=== PATIENT | female | born 1985 | race Caucasian/White ===

== ENCOUNTER 2021-03-28 23:14 | Emergency (ER) | payer MEDICAID ==
[~2021-03-28] VITALS: Ht 175.3 cm; Wt 143.2 kg
[2021-03-28 23:47] VITALS: BP 160/90
[2021-03-29 00:43] LABS: BASOPHILS % (AUTO) 0.4 % (0-1); EOSINOPHILS # (AUTO) 0.1 X10'3 (0-0.9); EOSINOPHILS % (AUTO) 0.8 % (0-6); HEMATOCRIT 37.3 % (35.0-45.0); HEMOGLOBIN 12.2 g/dl (12.0-16.0); LYMPHOCYTES # (AUTO) 1.9 X10'3 (1.1-4.8); LYMPHOCYTES % (AUTO) 29.4 % (21-51); MEAN CORPUSCULAR HGB CONC 32.7 g/dL (33.0-36.5); MEAN CORPUSCULAR VOLUME 76.6 FL (78-98); MEAN PLATELET VOLUME 8.1 FL (7.4-10.4); MONOCYTES # (AUTO) 0.4 X10'3 (0-0.9); MONOCYTES % (AUTO) 6.8 % (2-12); NEUTROPHILS % (AUTO) 62.6 % (42-75); PLATELET COUNT 206 X10'3 (140-440); RED BLOOD COUNT 4.87 X10'6 (4.20-5.60); RED CELL DISTRIBUTION WIDTH 14.7 % (11.5-14.5); WHITE BLOOD COUNT 6.4 X10'3 (4.5-11.0)
[2021-03-29 00:56] LABS: ALANINE AMINOTRANSFERASE 20 U/L (12-78); ALBUMIN 3.3 G/DL (3.4-5.0); ALBUMIN/GLOBULIN RATIO 0.9 (1.1-1.5); ALKALINE PHOSPHATASE 89 IU/L (46-116); ANION GAP 9 (8-16); ASPARTATE AMINO TRANSFERASE 9 U/L (10-37); BILIRUBIN,DIRECT 0.1 MG/DL (0-0.3); BILIRUBIN,TOTAL 0.1 MG/DL (0.1-1.0); BLOOD UREA NITROGEN 10 MG/DL (7-18); BUN/CREATININE RATIO 16.4 (6.6-38.0); CALCIUM 8.1 MG/DL (8.5-10.1); CHLORIDE 108 MMOL/L (99-107); CREATININE 0.61 MG/DL (0.40-0.90); GLUCOSE 91 MG/DL (70-104); LIPASE 72 U/L (73-393); POTASSIUM 4.1 MMOL/L (3.5-5.1); SODIUM 143 MMOL/L (135-145); TOTAL CARBON DIOXIDE 26.5 MMOL/L (24-32); TOTAL PROTEIN 6.8 G/DL (6.4-8.2); eGFR > 90 ML/MIN
[2021-03-29] MEDS ORDERED: METO-292 PO (02:41)
== END 2021-03-29 02:49 | disposition home or self-care (01) ==
LOC: ER 23:17
DX: R10.84 Generalized abdominal pain (principal); Z20.822 Contact with and (suspected) exposure to COVID-19; R11.2 Nausea with vomiting, unspecified; Z91.040 Latex allergy status; Z98.890 Other specified postprocedural states; Z79.899 Other long term (current) drug therapy
CPT/HCPCS: 36415; 76700; 80048; 80076; 83690; 85025; 87635; 99284; C9803

== ENCOUNTER 2021-12-30 11:35 | Emergency (ER) | payer SELFPAY ==
[~2021-12-30] VITALS: Ht 172.7 cm; Wt 140.9 kg
[~2021-12-30 11:35] MED LIST: METO-292 PO
[2021-12-30 11:58] VITALS: BP 144/88
[2021-12-30] MEDS ORDERED: ondansetron 4mg rapidly disintigrating tab PO ONE (12:05)
[2021-12-30 12:33] LABS: BASOPHILS % (AUTO) 0.5 % (0-1); EOSINOPHILS # (AUTO) 0.1 X10'3 (0-0.9); EOSINOPHILS % (AUTO) 1.1 % (0-6); HEMATOCRIT 34.6 % (35.0-45.0); HEMOGLOBIN 10.8 g/dl (12.0-16.0); LYMPHOCYTES # (AUTO) 1.6 X10'3 (1.1-4.8); LYMPHOCYTES % (AUTO) 23.7 % (21-51); MEAN CORPUSCULAR HEMOGLOBIN 21.8 PG (27.0-31.0); MEAN CORPUSCULAR HGB CONC 31.2 g/dL (33.0-36.5); MEAN CORPUSCULAR VOLUME 69.8 FL (78-98); MEAN PLATELET VOLUME 8.3 FL (7.4-10.4); MONOCYTES # (AUTO) 0.4 X10'3 (0-0.9); MONOCYTES % (AUTO) 5.4 % (2-12); NEUTROPHILS # (AUTO) 4.7 X10'3 (1.8-7.7); NEUTROPHILS % (AUTO) 69.3 % (42-75); PLATELET COUNT 272 X10'3 (140-440); RED BLOOD COUNT 4.96 X10'6 (4.20-5.60); RED CELL DISTRIBUTION WIDTH 16.2 % (11.5-14.5); WHITE BLOOD COUNT 6.7 X10'3 (4.5-11.0)
[2021-12-30 12:38] LABS: ALANINE AMINOTRANSFERASE 22 U/L (12-78); ALBUMIN 3.6 G/DL (3.4-5.0); ALKALINE PHOSPHATASE 82 IU/L (46-116); ANION GAP 7 (8-16); ASPARTATE AMINO TRANSFERASE 16 U/L (10-37); BILIRUBIN,TOTAL 0.3 MG/DL (0.1-1.0); BLOOD UREA NITROGEN 12 MG/DL (7-18); BUN/CREATININE RATIO 16.9 (6.6-38.0); CALCIUM 9.1 MG/DL (8.5-10.1); CHLORIDE 106 MMOL/L (99-107); CREATININE 0.71 MG/DL (0.40-0.90); GLUCOSE 104 MG/DL (70-104); POTASSIUM 4.5 MMOL/L (3.5-5.1); SODIUM 140 MMOL/L (135-145); TOTAL CARBON DIOXIDE 27.1 MMOL/L (24-32); TOTAL PROTEIN 7.1 G/DL (6.4-8.2); eGFR > 90 ML/MIN
[2021-12-30 12:41] LABS: LIPASE 65 U/L (73-393); MAGNESIUM 1.9 MG/DL (1.5-2.4)
[2021-12-30 12:43] LABS: D-DIMER < 0.19 MG/L FEU (0-0.50)
[2021-12-30 12:52] LABS: ANISOCYTOSIS 1+; HYPOCHROMASIA 1+; PLATELET ESTIMATE NORMAL
[2021-12-30 12:53] LABS: ELLIPTOCYTES FEW; MICROCYTOSIS 2+; TEAR DROP CELLS FEW
[2021-12-30 13:52] LABS: BETA HCG,QUANTITATIVE < 1.0 mIU/ml
--- NOTE | 2021-12-30 13:55 | NUR ---
Patient was seen, assessed and discharged by provider.
== END 2021-12-30 13:55 | disposition home or self-care (01) ==
LOC: ER 11:36
DX: D64.9 Anemia, unspecified (principal); R42 Dizziness and giddiness; R11.0 Nausea; R07.9 Chest pain, unspecified; Z91.040 Latex allergy status
CPT/HCPCS: 36415; 80053; 83690; 83735; 84484; 84702; 85008; 85025; 85379; 93005; 99284

== ENCOUNTER 2023-05-16 16:00 | Emergency (ER) | payer BC ==
[~2023-05-16] VITALS: Ht 175.3 cm; Wt 137.0 kg
[2023-05-16] MEDS ORDERED: ketorolac trometh inj. 60 MG/2 ML VIAL IM ONE (17:25)
[2023-05-16] MEDS ORDERED: diazepam inj 5 MG/ML inj. IM ONE (17:25)
[2023-05-16] MEDS ORDERED: NAPR-56 PO (17:36)
[2023-05-16] MEDS ORDERED: CYCL-1 PO (17:36)
[2023-05-16 17:57] VITALS: BP 129/97; PULSE 78; RESP 18; TEMP 98.4; O2SAT 99
== END 2023-05-16 17:58 | disposition home or self-care (01) ==
LOC: ER 16:01
DX: S39.012A Strain of muscle, fascia and tendon of lower back, initial encounter (principal); Z91.040 Latex allergy status; Z79.899 Other long term (current) drug therapy; X50.1XXA Overexertion from prolonged static or awkward postures, initial encounter; Y93.89 Activity, other specified; Y92.89 Other specified places as the place of occurrence of the external cause; Y99.8 Other external cause status
CPT/HCPCS: 96372; 99284; J1885; J3360

== ENCOUNTER 2023-07-09 16:09 | Emergency (ER) | payer BC ==
[~2023-07-09] VITALS: Ht 175.3 cm; Wt 137.3 kg
[~2023-07-09 16:09] MED LIST changes: +CYCL-1 PO
[2023-07-09 16:20] VITALS: BP 155/95; PULSE 83; RESP 18; O2SAT 100
[2023-07-09] MEDS ORDERED: AMOX-117 PO (17:03)
[2023-07-09 17:17] VITALS: TEMP 98.7
== END 2023-07-09 17:20 | disposition home or self-care (01) ==
LOC: ER 16:10
DX: H66.91 Otitis media, unspecified, right ear (principal); Z98.84 Bariatric surgery status; Z91.040 Latex allergy status; Z79.2 Long term (current) use of antibiotics; Z79.899 Other long term (current) drug therapy
CPT/HCPCS: 99283